=== PATIENT | female | born 1995 | race Two or more races ===

== ENCOUNTER 2023-11-09 08:22 | Emergency (ER) | payer MEDICAID ==
[~2023-11-09] VITALS: Ht 157.5 cm; Wt 46.6 kg
[2023-11-09 09:11] LABS: Basophils # (auto) 0 10 ^3/uL (0-0.2); Basophils % (auto) 0.2 % (0.0-2.0); Eosinophils # (auto) 0 10 ^3/uL (0-0.8); Eosinophils % (auto) 0.4 % (0.0-7.0); Hematocrit 42.9 % (36.0-46.0); Lymphocytes # (auto) 1.1 10 ^3/uL (0.4-5.4); Lymphocytes % (auto) 12.4 % (10.0-50.0); Mean Corpuscular Hemoglobin 28.8 pg (28.0-32.0); Mean Corpuscular Hgb Conc. 32.6 g/dL (32.0-36.0); Mean Corpuscular Volume 88.5 fL (80.0-100.0); Monocytes # (auto) 0.4 10 ^3/uL (0-1.3); Monocytes % (auto) 4.7 % (0.0-12.0); Neutrophils # (auto) 7.6 10 ^3/uL (1.6-8.6); Neutrophils % (auto) 82.3 % (37.0-80.0); Red Blood Cells 4.85 10^6/uL (4.0-5.20); White Blood Cell 9.2 10^3/uL (4.4-10.8)
[2023-11-09 09:51] LABS: Urine Bacteria None Seen /hpf (None Seen)
[2023-11-09 10:06] LABS: Urine Blood 3+ /uL (Negative); Urine Clarity Clear (Clear); Urine Color Yellow (Yellow); Urine Mucus FEW (None Seen); Urine Protein, UAD TRACE (Negative); Urine Specific Gravity 1.027 (1.001-1.035); Urine Urobilinogen Normal (Negative); Urine WBC 3 /hpf (0 - 5); Urine pH 5.5 (5.0-9.0)
[2023-11-09] MEDS: LIDOCAINE VISCOUS 2% 15ML UD PO ONE (10:10)
[2023-11-09] MEDS: MAALOX PLUS or MAALOX 30 ML PO ONE (10:10)
[2023-11-09] MEDS: DONNATAL 5ml ORAL Elix (BELLADONNA ALK-PHENOBARB) PO ONE (10:10)
[2023-11-09 10:14] VITALS: PULSE 81; RESP 18; O2SAT 99
[2023-11-09] MEDS ORDERED: PANT40TA2 PO (12:10)
[2023-11-09 14:15] VITALS: BP 110/76; PULSE 89; RESP 16; TEMP 98.1; O2SAT 100
== END 2023-11-09 14:23 | disposition home or self-care (01) ==
LOC: ER 08:22
DX: K29.00 Acute gastritis without bleeding (principal); Z79.899 Other long term (current) drug therapy
CPT/HCPCS: 36415; 81001; 83690; 85025